=== PATIENT | female | born 1985 | race African-American/Black ===

== ENCOUNTER 2020-07-31 11:50 | Inpatient (IN) ==
[2020-07-31 13:27] LABS: Bilirubin,Urine Negative (Negative); Blood, Urine Negative (Negative); Glucose,Urine (UA) Negative (Negative); Ketones,Urine Negative (Negative); Mucus,Urine Many /LPF (Occasional); Nitrite,Urine Negative (Negative); Protein,Urine Negative; RBC,Urine 1 /HPF (0-4); Squamous Epithelial Cell,Urine Few /HPF (0-10); Urine Appearance CLEAR (Clear); Urine Color Yellow (Yellow); Urine Specific Gravity 1.014 (1.001-1.035); Urine Urobilinogen < 2.0 EU/DL (0.2-1.0); WBC,Urine 4 /HPF (0-6)
[2020-07-31] MEDS ORDERED: hydrALAZINE 20 MG/1 ML VIAL IV PRN (13:52)
[2020-07-31] MEDS: LABETALOL 200 MG TABLET PO SCH ×2 (14:13→21:55)
[2020-07-31 14:20] LABS: Basophils % 0.2 % (0.0-0.8); Eosinophils % 0.3 % (0.00-10.9); Hematocrit 37.4 VOL% (35.7-47.0); Hemoglobin 11.5 GM/DL (12.0-16.0); Immature Granulocytes % 0.7 %; Immature Granulocytes Absolute 0.09 #; Lymphocytes # 2.4 10*3/uL (1.4-4.0); Lymphocytes % 17.8 % (21.3-54.2); Mean Corpuscular HGB Conc 30.7 GM/DL (32-36); Mean Corpuscular Volume 91.4 FL (87-102); Mean Platelet Volume 11.1 FL (9.6-12.0); Monocytes % 9.1 % (1.7-12.7); Neutrophils % 71.9 % (38.7-73.9); Platelet Count 253 T/CUMM (130-400); Red Blood Count 4.09 MC/CUMM (3.8-5.5); Red Cell Distribution Width 14.5 % (9.3-17.3); White Blood Count 13.3 T/CUMM (4-12)
[2020-07-31 14:35] LABS: INR 0.9; PT Patient Result 10.1 SECS (9.8-11.9); Partial Thromboplastin Time 26.2 SECS (23.9-33.8)
[2020-07-31 14:50] LABS: Albumin 2.5 G/DL (3.4-5.0); Bilirubin,Direct 0.11 MG/DL (0.0-0.20); Bilirubin,Total 0.4 MG/DL (0.2-1.0); Calcium 9.1 MG/DL (8.5-10.1); Osmolality,Calculated 269.8 MOS/KG (273-304); Total Protein 6.5 G/DL (6.4-8.3); Uric Acid 4.6 MG/DL (2.6-6.0)
[2020-07-31] MEDS ORDERED: LABETALOL 100 MG/20 ML VIAL IV PRN ×3 (16:15)
[2020-07-31] MEDS ORDERED: LABETALOL 20 MG/4 ML SYRINGE IV ONE (16:45)
[2020-07-31] MEDS: BETAMETH SODIUM PHOS/ACETATE 30 MG/5 ML VIAL IM SCH (16:58)
[2020-07-31] MEDS ORDERED: MAGNESIUM SULF RIDER 100 ML IV ONE (17:03)
[2020-07-31] MEDS ORDERED: MAGNESIUM SULF DRIP 40 GM/1,000 ML ML IV SCH (17:30)
[2020-07-31] MEDS ORDERED: LACTATED RINGERS 1,000 ML IV SCH (18:00)
[2020-07-31] MEDS ORDERED: ACETAMINOPHEN 500 MG TABLET PO ONE (19:34)
[2020-08-01] MEDS: LABETALOL 200 MG TABLET PO SCH ×3 (05:52→22:32)
[2020-08-01] MEDS ORDERED: OXYTOCIN/LR 20 UNIT/1,000 ML BAG IV SCH (11:30)
[2020-08-01] MEDS ORDERED: OXYTOCIN/LR 20 UNIT/1,000 ML BAG IV ONE ×2 (11:35→16:42)
[2020-08-01] MEDS ORDERED: AMPICILLIN INJ 2,000 MG in SODIUM CHLORIDE 0.9% 100 ML IV ONE (11:44)
[2020-08-01] MEDS ORDERED: AMPICILLIN 2,000 MG VIAL ONE (11:45)
[2020-08-01] MEDS ORDERED: SODIUM CHLORIDE 0.9% 100 ML IV ONE (11:45)
[2020-08-01] MEDS: BETAMETH SODIUM PHOS/ACETATE 30 MG/5 ML VIAL IM SCH (12:05)
[2020-08-01] MEDS ORDERED: ACETAMINOPHEN 500 MG TABLET PO PRN (12:16)
[2020-08-01] MEDS ORDERED: NALOXONE 0.4 MG/ML VIAL IV PRN (13:12)
[2020-08-01] MEDS ORDERED: PROMETHAZINE 25 MG/1 ML VIAL IM ONE (13:12)
[2020-08-01] MEDS ORDERED: diphenhydrAMINE 50 MG/1 ML VIAL IV PRN ×2 (13:12)
[2020-08-01] MEDS ORDERED: hydrOXYzine HCL 25 MG/1 ML VIAL IM PRN (13:12)
[2020-08-01] MEDS ORDERED: ePHEDrine 50 MG/ML VIAL IV PRN (13:12)
[2020-08-01] MEDS ORDERED: FAMOTIDINE 20 MG/2 ML VIAL IV ONE (13:13)
[2020-08-01] MEDS ORDERED: CITRIC ACID/SODIUM CITRATE 30 ML UDCUP PO ONE (13:13)
[2020-08-01] MEDS ORDERED: LACTATED RINGERS 1,000 ML IV ONE (13:13)
[2020-08-01] MEDS ORDERED: fentaNYL 2 MCG/ROPIV 0.2% EPID 100 ML EPIDURAL SCH (13:30)
[2020-08-01 14:50] LABS: Total Volume,Urine 4015 ML (400-2000)
[2020-08-01 14:59] LABS: Total Protein 24 Hr Ur Result 722 MG/24HR (0-149.1)
[2020-08-01] MEDS ORDERED: ONDANSETRON 4 MG/2 ML VIAL IV PRN ×2 (15:32→16:42)
[2020-08-01] MEDS ORDERED: ONDANSETRON 4 MG/2 ML VIAL ONE (15:35)
[2020-08-01] MEDS ORDERED: CARBOPROST TROMETHAMINE 250 MCG/ML AMP IM ONE (15:40)
[2020-08-01] MEDS ORDERED: miSOPROStoL 200 MCG TABLET ONE (15:40)
[2020-08-01] MEDS ORDERED: AMPICILLIN INJ 1,000 MG in SODIUM CHLORIDE 0.9% 100 ML IV SCH (15:50)
[2020-08-01] MEDS ORDERED: MEASLES/MUMPS/RUBELLA VACCINE 0.5 ML VIAL SUBCUT ONE (16:42)
[2020-08-01] MEDS ORDERED: oxyCODONE/ACETAMINOPHEN 5-325 MG TABLET PO PRN ×2 (16:42)
[2020-08-01] MEDS ORDERED: HYDROCORTISONE 2.5% RECTAL CREAM 30 GM TUBE TOP PRN (16:42)
[2020-08-01] MEDS ORDERED: DIPH/TET/ACEL PERT BOOSTER VACCINE 0.5 ML VIAL IM ONE (16:42)
[2020-08-01] MEDS ORDERED: BISACODYL 10 MG SUPP RECTAL PRN (16:42)
[2020-08-01] MEDS ORDERED: RHO(D) IMMUNE GLOBULIN 300 MCG SYRINGE IM ONE (16:42)
[2020-08-01] MEDS ORDERED: BENZOCAINE 20%/MENTHOL 0.5% SPRAY 56 GM CAN TOP PRN (16:42)
[2020-08-01] MEDS ORDERED: LANOLIN 50% CREAM 0.3 OZ TUBE TOP PRN (16:42)
[2020-08-01] MEDS ORDERED: ACETAMINOPHEN 325 MG TABLET PO PRN (16:42)
[2020-08-01] MEDS ORDERED: WITCH HAZEL PADS 100/JAR TOP PRN (16:42)
[2020-08-01 16:47] LABS: Cord Arterial Blood HCO3 23.5 MMOL/L
[2020-08-01 16:51] LABS: Cord Venous Blood HCO3 21.4 MMOL/L; Cord Venous Blood PO2 30.6 MMHG
[2020-08-01] MEDS ORDERED: MAGNESIUM SULF DRIP 40 GM/1,000 ML ML IV SCH (17:00)
[2020-08-01] MEDS: IBUPROFEN 800 MG TABLET PO PRN (22:30)
[2020-08-02 05:06] LABS: Basophils % 0.1 % (0.0-0.8); Hematocrit 36.4 VOL% (35.7-47.0); Hemoglobin 11.5 GM/DL (12.0-16.0); Immature Granulocytes % 0.8 %; Immature Granulocytes Absolute 0.17 #; Lymphocytes # 1.9 10*3/uL (1.4-4.0); Mean Corpuscular HGB Conc 31.6 GM/DL (32-36); Mean Corpuscular Volume 89.7 FL (87-102); Monocytes % 8.4 % (1.7-12.7); Neutrophils % 81.7 % (38.7-73.9); Platelet Count 252 T/CUMM (130-400); Red Blood Count 4.06 MC/CUMM (3.8-5.5); Red Cell Distribution Width 14.6 % (9.3-17.3); White Blood Count 21.2 T/CUMM (4-12)
[2020-08-02 05:28] LABS: Hypochromasia 1+; Lymphocytes 11 % (20-55); Microcytosis Slight; Platelet Estimate Adequate; Segmented Neutrophils 82 % (50-85); Total Cells Counted 100
[2020-08-02] MEDS: LABETALOL 200 MG TABLET PO SCH (05:54)
[2020-08-02] MEDS ORDERED: LABETALOL 100 MG TABLET PO ONE (08:33)
[2020-08-02] MEDS: IBUPROFEN 800 MG TABLET PO PRN (08:43)
[2020-08-02] MEDS: DOCUSATE SODIUM 100 MG CAPSULE PO SCH ×2 (08:54→21:17)
[2020-08-02] MEDS ORDERED: LABETALOL 100 MG TABLET PO SCH (09:00)
[2020-08-02] MEDS: LABETALOL 100 MG TABLET PO SCH ×2 (14:15→21:16)
[2020-08-02] MEDS: CETIRIZINE 10 MG TABLET PO SCH (14:32)
[2020-08-03] MEDS: LABETALOL 100 MG TABLET PO SCH (06:07)
[2020-08-03 08:24] VITALS: BP 138/83
[2020-08-03] MEDS: DOCUSATE SODIUM 100 MG CAPSULE PO SCH ×2 (09:26→09:28)
[2020-08-03] MEDS: CETIRIZINE 10 MG TABLET PO SCH (09:27)
== END 2020-08-03 11:20 | disposition home or self-care (01) | DRG 807 ==
LOC: N.LDOUT 11:50 → N.LD 11:51 → N.OB 08-02 09:05
PROVIDERS: ADMIT Specialist; ATTEND Specialist